=== PATIENT | male | born 1970 | race Caucasian/White ===

== ENCOUNTER 2016-07-17 15:00 | Inpatient (IN) | payer OTHER ==
--- NOTE | ~2016-07-17 | HP ---
Unit #: [id number] #: [id number] Patient: HARISH WHITLEY [id number] [place] [address] [id number] MR#: [id number] NAME: HARISH WHITLEY ROOM: P203 Age: 46 Sex: M Admission Date: 07/17/2016 : 1970 Attending Physician: Austin Garcia M.D. Admitting Physician: Austin Garcia M.D. Primary Care Physician: Primary Care Physician No HISTORY AND PHYSICAL HISTORY OF PRESENT ILLNESS The patient is a 46-year-old male admitted to [address] [place] [address] on 07/17/2016 to detox from alcohol. PAST MEDICAL HISTORY 1. Alcohol abuse 2. Withdrawal seizures 3. COPD 4. Nicotine dependence PAST SURGICAL HISTORY The patient denies. SOCIAL HISTORY The patient lives alone. He is unemployed. He smokes a half of pack of cigarettes daily and drinks a half of gallon of vodka per day. FAMILY MEDICAL HISTORY Noncontributory. ALLERGIES No known drug allergies. CURRENT MEDICATIONS The patient is not on any home medications. REVIEW OF SYSTEMS CONSTITUTIONAL: No fever or chills. HEENT: Denies any sore throat, ear pain or runny nose. CARDIOVASCULAR: Denies chest pain, irregular heart rhythm or palpitations. CHEST: Denies shortness of breath or cough. No hemoptysis. GASTROINTESTINAL: Denies nausea, vomiting, diarrhea or chronic constipation. ENDOCRINE: Denies history of increased thirst or urination. No recent significant weight loss or gain. GENITOURINARY: Denies dysuria, frequency, or hematuria. SKIN: Denies any rashes. HEMATOLOGIC: Denies history of increased bleeding or bruising. MUSCULOSKELETAL: Denies any hot, swollen joints. No generalized muscle pain. NEUROLOGIC: Denies problems with vision or speech. No frequent, severe headaches. No numbness, tingling or weakness in any extremities. Denies loss of bladder or bowel control. Unit #: [id number] #: [id number] Patient: HARISH WHITLEY PHYSICAL EXAM GENERAL: She is awake, alert and oriented in no acute distress. VITAL SIGNS: Temperature 98.1, heart rate 105, respiration 18, blood pressure 162/92. HEIGHT: 5'10". WEIGHT: 160 pounds. SKIN: Warm and dry without rash or lesion. HEENT: Normocephalic. TMs not viewed. Oral and nasal passages clear. Conjunctivae clear. PERRLA. EOMs intact. NECK: Supple without lymphadenopathy or thyromegaly. HEART: Regular rate and rhythm without murmur. LUNGS: Clear. ABDOMEN: Soft, nontender. : Not done. EXTREMITIES: No evidence of cyanosis, clubbing or edema. Moves all without focal deficit. NEUROLOGICAL: Grossly within normal limits. Cranial Nerves: II: Visual roman are intact. III, IV AND : Extraocular movements are intact. Pupils are equal, round and reactive to light. V: Facial sensation is grossly normal. VII: Facial movements and expression are normal. VIII: Auditory acuity grossly intact. IX, X: Uvula is midline. Phonation is normal. XI: Patient shrugs shoulders and turns head normally. XII: Tongue protrudes in the midline. Sensory and Motor Function: Sensory and motor sensation is grossly normal. Motor: moves all extremities well. IMPRESSION 1. Psychiatric admission. 2. Alcohol dependence. 3. Withdrawal seizures. 4. COPD. 5. Nicotine dependence. RECOMMENDATIONS Psychiatric per psychiatrist. MEDICAL: No contraindication to participate in facility activities. MEDICAL PROGNOSIS Good. MEDICAL CONDITION Stable. Dictated by... Matt Godinez/tonya TD: 07/19/2016 00:22 JOB #: [id number] Unit #: [id number] #: [id number] Patient: HARISH WHITLEY HISTORY AND PHYSICAL Page 1 of 1 X LOVE NARVAEZ APRN HISTORY AND PHYSICAL
--- NOTE | ~2016-07-17 | PN ---
Unit #: [id number] #: [id number] Patient: HARISH ARIAS [id number] [facility] [address] [place] [address] [id number] MR#: [id number] NAME: HARISH ARIAS ROOM: P203 Age: 46 Sex: M Admission Date: 07/17/2016 : 1970 Attending Physician: Austin Garcia M.D. Admitting Physician: Austin Garcia M.D. Primary Care Physician: Primary Care Physician Ofelia CONTRERAS NOTES DATE OF SERVICE 07/19/2016 DISCUSSION Mr. Arias is a 46-year-old white male who was seen today. Chart was reviewed and case was discussed with the staff. He has been anxious, withdrawn, and seclusive to himself and remains in distress and discomfort. Meanwhile, he has been taking the medications and tolerating them fairly well with no reported side effects. MENTAL STATUS EXAMINATION Middle-aged white male who is casually dressed with marginal personal hygiene, appears to be in no acute distress or discomfort. The patient was awake and alert on interaction with intact orientation. His mood is anxious with congruent affect. He denies any suicidal or homicidal ideations and also denies any auditory or visual hallucinations. His insight and judgment remain slightly impaired. TREATMENT PLAN 1. We will continue him on his current medications and treatment protocol. We will monitor his response to the medications and make further adjustments as needed. 2. We will continue to follow up. Dictated by... Austin Garcia M.D. IAA/bzg TD: 07/20/2016 09:07 JOB #: [id number] Unit #: [id number] #: [id number] Patient: HARISH ARIAS PROGRESS NOTES Page 1 of 1 X Austin Garcia MD PROGRESS NOTE
--- NOTE | ~2016-07-17 | PA ---
Unit #: [id number] #: [id number] Patient: HARISH ARIAS [id number] [facility] [place] [address] [id number] MR#: [id number] NAME: HARISH ARIAS ROOM: P203 Age: 46 Sex: M Admission Date: 07/17/2016 : 1970 Date of Assessment: 07/18/2016 Attending Physician: Austin Garcia M.D. Admitting Physician: Austin Garcia M.D. Primary Care Physician: Primary Care Physician No PSYCHIATRIC ASSESSMENT DATE OF SERVICE 07/17/2016. IDENTIFYING DATA Mr. Arias is a 46-year-old, , white male, who is a resident of [place], [place] and was self-referred to the hospital on a voluntary basis. CHIEF COMPLAINT "I'm very sick. I could not move this morning." HISTORY OF PRESENT ILLNESS Mr. Arias is a 46-year-old white male with long history of alcohol dependence, who is known to me from previous encounter, was self-referred to the hospital with blood alcohol level of 0.036 and he stated that he is very sick and he cannot move this morning as "I think I'm dehydrated, right before I left I got sick and puked up a lung. My girlfriend, family, everybody states I have to stop." The patient stated that he was sober for 6 months and that he has been drinking 12 beers daily for the last 6 months. He then got agitated and aggressive and hostile on admissions and he was taken to the unit, where once again he was seen to be hostile and belligerent and p.r.n. medications were given to keep him calm and was seen to be significant danger to others and himself and as such, recommendation for inpatient level of care was recommended. SUBSTANCE ABUSE HISTORY The patient reports history of experimentation with cannabis, but alcohol has been his drug of choice and reports that he has been drinking for the last 15 years and currently has been drinking 12 beers or more on daily basis. He denies any other drug abuse. PAST PSYCHIATRIC HISTORY The patient has had history of multiple inpatient chemical dependency psychiatric treatment at [facility] [place] and review of the medical records indicate that currently he is not active in any treatment program, is not seeing a psychiatrist, and not taking any psychotropic medications. PAST MEDICAL HISTORY Gastroesophageal reflux disease. ALLERGIES No known medication allergies. Unit #: [id number] #: [id number] Patient: HARISH ARIAS PERSONAL AND SOCIAL HISTORY The patient is a 46-year-old, , white male who reports that he lives at home with his mother and his girlfriend, and has fairly decent social support system. MENTAL STATUS EXAMINATION Middle-aged white male who was casually dressed with fair personal hygiene, appears to be in no acute distress or discomfort. He was awake and alert on interaction with intact orientation to time, place, and person. His mood was anxious with a congruent affect. His speech was slow and goal directed. He reports having suicidal ideation, but denies any homicidal ideations, and also denies any auditory or visual hallucinations. His insight and judgment remain significantly impaired. DIAGNOSTIC IMPRESSION Psychiatric: Major depressive disorder, recurrent, moderate, without psychotic features; alcohol dependence, moderate and acute withdrawals. Medical: None. Stressors: Moderate psychosocial stressors. TREATMENT PLAN 1. The patient has presented with history of mood disorder and has been decompensating, and will need inpatient hospitalization for safety and stabilization. We will start him back on his home medications. We will adjust medications and monitor response. 2. Supportive therapy was provided to the patient. ESTIMATED LENGTH OF STAY 5 to 7 days. ABILITY TO HELP SELF Limited. WILLINGNESS TO HELP SELF The patient appears to be willing to help self. STRENGTHS 1. Communicative. 2. Cooperative. PROBLEMS 1. Chronic dysphoric symptoms. 2. Chronic chemical dependency. 3. Poor social support system. DISCHARGE CRITERIA This will be contingent upon the patient's ability to go through detox without having any significant withdrawal symptoms as well as his ability to stay safe to himself, particularly after discharge from the hospital. Dictated by... Marlen Zimmerman/iftikhar TD: 07/18/2016 10:53 JOB #: [id number] Unit #: [id number] #: [id number] Patient: HARISH ARIAS PSYCHIATRIC ASSESSMENT Page 1 of 1 X Austin Garcia MD X PSYCHIATRIC ASSESSMENT
--- NOTE | ~2016-07-17 | PN ---
Unit #: [id number] #: [id number] Patient: HARISH ARIAS [id number] [facility] [address] [place] [address] [id number] MR#: [id number] NAME: HARISH ARIAS ROOM: P203 Age: 46 Sex: M Admission Date: 07/17/2016 : 1970 Attending Physician: Austin Garcia M.D. Admitting Physician: Austin Garcia M.D. Primary Care Physician: Primary Care Physician Ofelia CONTRERAS NOTES DATE OF SERVICE 07/21/2016 DISCUSSION Mr. Arias is a 46-year-old white male who was seen today. Chart was reviewed and case was discussed with staff. He has been anxious and withdrawn though has not shown any agitation or irritability and has been cooperative with the treatment recommendations and has been taking the medications and tolerating them fairly well with no reported side effects. MENTAL STATUS EXAMINATION Middle-aged white male who is casually dressed with fair personal hygiene, appears to be in no acute distress or discomfort. The patient was awake and alert on interaction with intact orientation. His mood is anxious with congruent affect. He denies any suicidal or homicidal ideations and also denies any auditory or visual hallucinations. His insight and judgment remain slightly impaired. TREATMENT PLAN 1. We will continue him on his current medications and treatment protocol. We will monitor his response to the medications and make further adjustments as needed. 2. We will continue to follow up. Dictated by... Austin Garcia M.D. IAA/bzg TD: 07/21/2016 14:54 JOB #: [id number] Unit #: [id number] #: [id number] Patient: HARISH ARIAS PROGRESS NOTES Page 1 of 1 X Austin Garcia MD X PROGRESS NOTE
--- NOTE | ~2016-07-17 | PN ---
Unit #: [id number] #: [id number] Patient: HARISH ARIAS [id number] [facility] [address] [place] [address] [id number] I MR#: [id number] NAME: HARISH ARIAS ROOM: P203 Age: 46 Sex: M Admission Date: 07/17/2016 : 1970 Attending Physician: Austin Garcia M.D. Admitting Physician: Austin Garcia M.D. Primary Care Physician: Primary Care Physician Ofelia CONTRERAS NOTES DATE 07/20/2016 DISCUSSION Mr. Arias is a 46-year-old, white male who was seen today and chart was reviewed and case was discussed with the staff. He has been anxious, withdrawn and rather seclusive to himself. Meanwhile, he has been cooperative with treatment recommendations. He has been taking medications and tolerating them fairly well with no reported side effects. MENTAL STATUS EXAM Middle-aged white male who was casually dressed with fair personal hygiene, appears to be in no acute distress or discomfort. He was awake and alert on interaction with intact orientation. His mood was anxious with congruent affect. He denies any suicidal or homicidal ideation. His insight and judgement remains slightly impaired. TREATMENT PLAN 1. We will continue him on his current medications and treatment protocol. We will monitor his response to the medication and make further adjustments as needed. 2. We will continue to follow up. Dictated by... Marlen Zimmerman/tonya TD: 07/21/2016 03:03 JOB #: [id number] Unit #: [id number] #: [id number] Patient: HARISH ARIAS PROGRESS NOTES Page 1 of 1 X Austin Garcia MD PROGRESS NOTE
--- NOTE | ~2016-07-17 | DS ---
Unit #: [id number] #: [id number] Patient: [facility] [id number] [facility] [address] [place] [address] [id number] MR#: [id number] NAME: HARISH ARIAS ROOM: [facility] Age: 46 Sex: M Admission Date: 07/17/2016 : 1970 Discharge Date: 07/22/2016 Attending Physician: Austin Garcia M.D. Primary Care Physician: Primary Care Physician No DISCHARGE SUMMARY IDENTIFYING DATA Mr. Arias is a 46-year-old white male, who is a resident of [place], [place], and was self-referred to the hospital on a voluntary basis. DISCHARGE DIAGNOSES Psychiatric: Major depressive disorder, recurrent, moderate, without psychotic features; alcohol dependence, moderate and acute withdrawals. Medical: None. Stressors: Moderate psychosocial stressors. HISTORY OF PRESENT ILLNESS Please see initial psychiatric evaluation for details. PAST PSYCHIATRIC HISTORY Please see initial psychiatric evaluation for details. PAST MEDICAL HISTORY Please see initial psychiatric evaluation for details. HOSPITAL COURSE The patient was [facility] and was oriented to the hospital environment. Routine p.r.n. medications were initiated, and he was started back on his home medications and detox protocol was initiated. The patient was actively detoxing, however, he was able to come out of the detox without any complications and was willing to continue treatment on an outpatient basis and as such, it was decided that he will be discharged home and will continue treatment on an outpatient basis. DISCHARGE MEDICATIONS None. DISCHARGE CONDITION Stable. PROGNOSIS Fair. Dictated by... Austin Garcia M.D. IAA/modl Unit #: [id number] #: [id number] Patient: HARISH ARIAS TD: 07/22/2016 23:22 JOB #: [id number] DISCHARGE SUMMARY Page 1 of 1 X Austin Garcia MD X DISCHARGE SUMMARY
--- NOTE | ~2016-07-17 | PN ---
Unit #: [id number] #: [id number] Patient: HARISH ARIAS [id number] [facility] [address] [place] [address] [id number] I MR#: [id number] NAME: HARISH ARIAS ROOM: P203 Age: 46 Sex: M Admission Date: 07/17/2016 : 1970 Attending Physician: Austin Garcia M.D. Admitting Physician: Austin Garcia M.D. Primary Care Physician: Primary Care Physician Ofelia CONTRERAS NOTES DATE 07/18/2016 DISCUSSION Mr. Arias is a 46-year-old, white male who was seen today and chart was reviewed and case was discussed with the staff. He remains anxious, withdrawn, unkempt, disheveled and rather seclusive to himself appears to be in some distress or discomfort after had a rough night last night. Meanwhile, he has been taking medications and tolerating them fairly well with no reported side effects. MENTAL STATUS EXAM Middle-aged white male who was casually dressed with fair personal hygiene, appears to be in no acute distress or discomfort. He was awake and alert with impaired attention and concentration. His mood was anxious with congruent affect. His speech was slow and tangential. His insight and judgement remains significantly impaired. TREATMENT PLAN 1. We will continue him on his current medications and treatment protocol. We will monitor his response to the medication and make further adjustments as needed. 2. We will continue to follow up. Dictated by... Marlen Zimmerman/tonya TD: 07/20/2016 02:51 JOB #: [id number] Unit #: [id number] #: [id number] Patient: HARISH ARIAS PROGRESS NOTES Page 1 of 1 X Austin Garcia MD PROGRESS NOTE
[~2016-07-17 15:00] MED LIST: FOLIC ACID1 MG PO; LIBRIUM25 MG PO; MOTRIN IB200 M1; MULTI-VITAMIN1 TAB PO; NICOTINE TRANSD21 MG EXT; VITAMIN B-1100 M1 PO
[2016-07-19 09:43] LABS: BASOPHIL% 0.3 % (0-2.5); EOSINOPHIL# 0.1 X10e3 (0-0.7); EOSINOPHIL% 2.1 % (0.0-7.0); HEMOGLOBIN 14.7 gm/dL (13.0-16.0); LYMPHOCYTE# 2.1 X10e3 (1.0-3.5); LYMPHOCYTE% 30.6 % (17.0-45.0); MEAN CELL VOLUME 88.9 FL (83-96); MEAN CORPUSCULAR HEMOGLOBIN 29.7 PG (28-34); MEAN CORPUSCULAR HGB CONC 33.4 g/dL (30-36); MEAN PLATELET VOLUME 6.6 FL (6.5-11.5); MONOCYTE# 0.5 X10e3 (0-1.0); MONOCYTE% 7.1 % (3.0-12.0); NEUTROPHIL# 4.2 X10e3 (1.5-7.1); NEUTROPHIL% 59.9 % (40-75); PLATELET COUNT 290 X10e3 (140-420); RED BLOOD COUNT 4.94 X10e (3.90-5.60); RED CELL DISTRIBUTION WIDTH 14.3 % (11.0-15.5)
[2016-07-19 09:51] LABS: DIFF IND NO
[2016-07-19 10:00] LABS: URINE APPEARANCE CLEAR; URINE BLOOD NEG (NEG); URINE COLOR DK YELLOW; URINE GLUCOSE NEG (NEG); URINE KETONE 2+ (NEG); URINE LEUKOCYTE ESTERASE NEG (NEG); URINE NITRATE NEG (NEG); URINE PROTEIN TRACE (NEG); URINE SPECIFIC GRAVITY 1.029 (1.003-1.035)
[2016-07-19 10:15] LABS: BILIRUBIN,TOTAL 2.4 mg/dL (0.2-2.0); BUN/CREATININE RATIO 23.33; CALCIUM SERUM 9.1 mg/dL (8.4-10.2); CREATININE SERUM 0.6 mg/dL (0.6-1.4); GLOM FILT RATE Estimated 122.3 mL/min (>60); PROTEIN TOTAL SERUM 6.2 g/dL (6.0-8.3)
[2016-07-19 10:20] LABS: URINE BILIRUBIN NEG (NEG)
[2016-07-19 10:21] LABS: AMPHETAMINE NEG (NEG); BARBITURATES NEG (NEG); BENZODIAZEPINES POS (NEG); COCAINE NEG (NEG); MARIJUANA NEG (NEG); OPIATES NEG (NEG); TRICYCLIC ANTIDEPRESSANTS NEG (NEG); U METHADONE NEG (NEG)
== END 2016-07-22 09:21 | disposition home or self-care (01) | DRG 885 ==
LOC: P2S 16:59
PROVIDERS: Psychiatry & Neurology Psychiatry
PROC: HZ2ZZZZ Detoxification Services for Substance Abuse Treatment (ICD-10-PCS; principal; 2016-07-17)
DX: F33.1 Major depressive disorder, recurrent, moderate (principal); F10.239 Alcohol dependence with withdrawal, unspecified; F17.210 Nicotine dependence, cigarettes, uncomplicated; J44.9 Chronic obstructive pulmonary disease, unspecified; K21.9 Gastro-esophageal reflux disease without esophagitis
CPT/HCPCS: 80053; 80307; 81003; 85025; 86592

== ENCOUNTER 2016-09-13 13:27 | Inpatient (IN) | payer OTHER ==
--- NOTE | ~2016-09-13 | PN ---
Unit #: [id number] #: [id number] Patient: HARISH ARIAS [id number] [facility] [address] [place] [address] [id number] I MR#: [id number] NAME: HARISH ARIAS ROOM: [facility] Age: 46 Sex: M Admission Date: 09/13/2016 : 1970 Attending Physician: Austin Garcia M.D. Admitting Physician: Austin Garcia M.D. Primary Care Physician: Primary Care Physician Ofelia CARRIZALES PROGRESS NOTES DATE September 19, 2016 DISCUSSION Mr. Arias is a 46-year-old white male, who was seen today and chart was reviewed and the case was discussed with the staff. He has been anxious, withdrawn, and rather seclusive to himself. Meanwhile, he has been cooperative with the treatment recommendations and he has been taking the medications and tolerating them fairly well with no reported side effects. MENTAL STATUS EXAMINATION Middle-aged white male, who was casually dressed with fair personal hygiene and appears to be in no acute distress or discomfort. He was awake and alert on interaction with intact orientation. His mood is anxious with a congruent affect. He denies any suicidal or homicidal ideations. His insight and judgment remain slightly impaired. TREATMENT PLAN We will continue him on his current treatment protocol, and will monitor his response to the medications. Dictated by... Marlen Zimmerman/vinicius TD: 09/20/2016 09:28 JOB #: [id number] [facility] PROGRESS NOTES Page 1 of 1 X Austin Garcia MD PROGRESS NOTE
--- NOTE | ~2016-09-13 | PA ---
Unit #: [id number] #: [id number] Patient: HARISH ARIAS [id number] [facility] [address] [place] [address] [id number] MR#: [id number] NAME: HARISH ARIAS ROOM: P201 Age: 46 Sex: M Admission Date: 09/13/2016 : 1970 Date of Assessment: 09/13/2016 Attending Physician: Austin Garcia M.D. Admitting Physician: Austin Garcia M.D. Primary Care Physician: Primary Care Physician No PSYCHIATRIC ASSESSMENT DATE OF SERVICE 09/13/2016. IDENTIFYING DATA Mr. Arias is a 46-year-old white male, who is a resident of [place], [place] with long history of alcohol dependence, who is very well known to us from previous multiple encounters and was once again self-referred to the hospital. CHIEF COMPLAINT "I've been drinking at least a fifth of vodka daily." HISTORY OF PRESENT ILLNESS Mr. Arias is a 46-year-old white male, who brought himself to the hospital, stating that he relapsed about a month ago and since then, he has been drinking at least a fifth of vodka on daily basis and was seen to be anxious, withdrawn, unkempt, disheveled, tremulous, and had slurred speech and appears to be in acute distress and discomfort and reports that sometime he has been drinking more and his last drink was last night around 9:00 p.m. and that he has history of withdrawal seizures as well as history of delirium tremens and is known to us from having complicated detox in the past. He reports that he has been unemployed for 3 weeks and lost his job 3 weeks ago after he relapsed on alcohol and that he has been homeless for the past 3 weeks and has no source of income and has a history of withdrawal seizures and has been drinking on the street, and does report increasing depression, anxiety, feelings of hopelessness and helplessness, and has history of suicidal ideation, has attempted suicide by overdosing a few years ago. He denies any current suicide intent or plan. SUBSTANCE ABUSE HISTORY The patient reports history of alcohol dependence. Reports that he has been drinking since he was 7 years old and currently reports drinking a fifth of vodka on daily basis and sometimes drinks more. He denies any other substance abuse issues. PAST PSYCHIATRIC HISTORY The patient has a history of multiple inpatient psychiatric hospitalizations at [facility] and other facilities and currently is not active in treatment program, is not seeing a psychiatrist, and is not taking any psychotropic medications. PAST MEDICAL HISTORY Unit #: [id number] #: [id number] Patient: HARISH ARIAS Significant for history of withdrawal seizures. ALLERGIES No known medication allergies. CURRENT MEDICATIONS None. PERSONAL AND SOCIAL HISTORY A 46-year-old white male, who reports that he is single, unemployed, and essentially homeless and has poor social support system. MENTAL STATUS EXAMINATION Middle-aged white male, who was casually dressed with fair personal hygiene, appears to be in no acute distress or discomfort. He was awake and alert on interaction with intact orientation. His mood was anxious and depressed with a congruent affect. His speech was slow and restricted in content. His thought processes were disorganized with some looseness of associations. He denies any suicidal or homicidal ideations and also denies any auditory or visual hallucinations. His insight and judgment remain significantly impaired. DIAGNOSTIC IMPRESSION Psychiatric: Alcohol dependence, moderate; alcohol-induced mood disorder. Medical: None. Stressors: Moderate psychosocial stressors. TREATMENT PLAN 1. The patient has presented with a history of mood disorder and substance abuse and has been decompensating and will need inpatient hospitalization for detoxification, safety, and stabilization. We will start him on detox protocol. We will closely monitor for any worsening withdrawal symptoms. 2. Supportive therapy was provided to the patient. 3. Safe, structured, and nourishing environment will be provided. ESTIMATED LENGTH OF STAY 5 to 7 days. ABILITY TO HELP SELF Limited. WILLINGNESS TO HELP SELF The patient appears to be willing to help self. STRENGTHS 1. Communicative. 2. Cooperative. PROBLEMS 1. Chronic dysphoric symptoms. 2. Chronic chemical dependency. 3. Poor social support system. DISCHARGE CRITERIA This will be contingent upon the patient's ability to go through detox without having any significant withdrawal symptoms as well as his ability to stay safe to himself, particularly after discharge from the hospital. Unit #: [id number] #: [id number] Patient: HARISH ARIAS Dictated by... Marlen Zimmerman/iftikhar TD: 09/14/2016 20:21 JOB #: [id number] PSYCHIATRIC ASSESSMENT Page 1 of 1 X Austin Garcia MD PSYCHIATRIC ASSESSMENT
--- NOTE | ~2016-09-13 | PN ---
Unit #: [id number] #: [id number] Patient: HARISH ARIAS [id number] [facility] [address] [place] [address] [id number] I MR#: [id number] NAME: HARISH ARIAS ROOM: P201 Age: 46 Sex: M Admission Date: 09/13/2016 : 1970 Attending Physician: Austin Garcia M.D. Admitting Physician: Austin Garcia M.D. Primary Care Physician: Primary Care Physician Ofelia CARRIZALES PROGRESS NOTES DATE 09/16/2016 DISCUSSION Mr. Arias is a 46-year-old white male who was seen today and chart was reviewed and case was discussed with the staff. He has been anxious, withdrawn and seclusive to himself. Meanwhile, he has been cooperative with treatment recommendations and has been taking medications and tolerating them fairly well with no reported side effects. MENTAL STATUS EXAMINATION Middle-aged white male who was casually dressed with fair personal hygiene and appears to be in no acute distress or discomfort. He was awake and alert on interaction with intact orientation. His mood was anxious with congruent affect. He denies any suicidal or homicidal ideation. His insight and judgement remains slightly impaired. TREATMENT PLAN Will continue on his current treatment protocol. Will monitor response and make further adjustments as needed. Dictated by... Marlen Zimmerman/luann TD: 09/16/2016 17:21 JOB #: [id number] [facility] PROGRESS NOTES Page 1 of 1 X Austin Garcia MD X PROGRESS NOTE
--- NOTE | ~2016-09-13 | PN ---
Unit #: [id number] #: [id number] Patient: HARISH ARIAS [id number] [facility] [address] [place] [address] [id number] I MR#: [id number] NAME: HARISH ARIAS ROOM: P201 Age: 46 Sex: M Admission Date: 09/13/2016 : 1970 Attending Physician: Austin Garcia M.D. Admitting Physician: Austin Garcia M.D. Primary Care Physician: Primary Care Physician Ofelia CARRIZALES PROGRESS NOTES DATE OF SERVICE: 09/14/2016 SUBJECTIVE Mr. Arias is a 46-year-old white male, who was seen today and chart was reviewed, and case was discussed with the staff. He has been anxious, withdrawn, in no acute distress or discomfort. Meanwhile, he has been taking medications and tolerating them fairly well with no reported side effects. MENTAL STATUS EXAMINATION Middle-aged white male who was causally dressed with marginal personal hygiene, appears to be in no acute distress or discomfort. He was awake and alert with impaired attention and concentration. His mood was anxious with a congruent affect. His speech was slow and restricted in content. His thought processes were disorganized with some looseness of association. His insight and judgement remain significantly impaired. TREATMENT PLAN 1. We will continue him on his current medications and treatment protocol. We will monitor his response to the medications and make further adjustments as needed. 2. We will continue to follow up. Dictated by... Marlen Zimmerman/juancarlosl TD: 09/15/2016 01:07 JOB #: [id number] [facility] PROGRESS NOTES Page 1 of 1 X Austin Garcia MD PROGRESS NOTE
--- NOTE | ~2016-09-13 | PN ---
Unit #: [id number] #: [id number] Patient: HARISH ARIAS [id number] [facility] [address] [place] [address] [id number] I MR#: [id number] NAME: HARISH ARIAS ROOM: P201 Age: 46 Sex: M Admission Date: 09/13/2016 : 1970 Attending Physician: Austin Garcia M.D. Admitting Physician: Austin Garcia M.D. Primary Care Physician: Primary Care Physician Ofelia CARRIZALES PROGRESS NOTES DATE 09/15/2016 DISCUSSION Mr. Arias is a 46-year-old white male who was seen today and chart was reviewed and case was discussed with the staff. He has been anxious, withdrawn and rather seclusive to himself. Meanwhile, he has been cooperative with treatment recommendations and has been taking medications and tolerating them fairly well with no reported side effects. MENTAL STATUS EXAMINATION Middle-aged white male who was casually dressed with fair personal hygiene and appears to be in no acute distress or discomfort. He was awake and alert with impaired attention and concentration. His mood was anxious with congruent affect. He denies any suicidal or homicidal ideation. His insight and judgement remains slightly impaired. TREATMENT PLAN 1. Will continue on his current medications and treatment protocol. Will monitor his response to the medications and make further adjustments as needed. 2. Will continue to follow up. Dictated by... Austin Garcia M.D. IAA/luann TD: 09/15/2016 21:23 JOB #: [id number] Unit #: [id number] #: [id number] Patient: HARISH ARIAS PROGRESS NOTES Page 1 of 1 X Austin Garcia MD PROGRESS NOTE
--- NOTE | ~2016-09-13 | PN ---
Unit #: [id number] #: [id number] Patient: HARISH ARIAS [id number] [facility] [address] [place] [address] [id number] I MR#: [id number] NAME: HARISH ARIAS ROOM: P1 Age: 46 Sex: M Admission Date: 09/13/2016 : 1970 Attending Physician: Austin Garcia M.D. Admitting Physician: Austin Garcia M.D. Primary Care Physician: Primary Care Physician Ofelia CARRIZALES PROGRESS NOTES DATE 09/20/2016 DISCUSSION Mr. Arias is a 46-year-old, white male who was seen today and chart was reviewed and case was discussed with the staff. He has been anxious, withdrawn and rather seclusive to himself. Meanwhile, he has been cooperative with the treatment recommendations. He has been taking the medication and tolerating them fairly well with no reported side effects. MENTAL STATUS EXAM Middle-aged white male who was casually dressed with fair personal hygiene, appears to be in no acute distress or discomfort. He was awake and alert on interaction with intact orientation. His mood was anxious with congruent affect. He denies any suicidal or homicidal ideation. His insight and judgement remains slightly impaired. TREATMENT PLAN 1. We will continue him on his current treatment protocol. We will monitor his response and make further adjustments as needed. 2. We will continue to follow up. Dictated by... Marlen Zimmerman/tonya TD: 09/21/2016 04:05 JOB #: [id number] Unit #: [id number] #: [id number] Patient: HARISH ARIAS PROGRESS NOTES Page 1 of 1 X Austin Garcia MD PROGRESS NOTE
--- NOTE | ~2016-09-13 | DS ---
Unit #: [id number] #: [id number] [facility] [id number] [facility] [address] [place] [address] [id number] I MR#: [id number] NAME: HARISH ARIAS ROOM: P1 Age: 46 Sex: M Admission Date: 09/13/2016 : 1970 Discharge Date: 09/21/2016 Attending Physician: Austin Garcia M.D. Primary Care Physician: Primary Care Physician No DISCHARGE SUMMARY IDENTIFYING DATA Mr. Arias is a 46-year-old white male who is a resident of [place], [place] and is very well known to us from previous multiple encounters and was self-referred to the hospital. DISCHARGE DIAGNOSES Psychiatric: Alcohol dependence, moderate and acute withdrawals, alcohol-induced mood disorder. Medical: None. Stressors: Moderate psychosocial stressors. HISTORY OF PRESENT ILLNESS Please see initial psychiatric evaluation for details. PAST PSYCHIATRIC HISTORY Please see initial psychiatric evaluation for details. PAST MEDICAL HISTORY Please see initial psychiatric evaluation for details. HOSPITAL COURSE The patient was admitted to the adult chemical dependency unit at [facility] and was oriented to the hospital environment. Routine p.r.n. medications were initiated, and he was started back on his home medications and detox protocol was initiated and he was closely monitored. He was once again seen to be having complicated withdrawals and was unkempt, disheveled, seclusive to himself with significant anxiety and tremors and initially was not even able to function or come out of his room, however, he slowly started showing therapeutic response with improvement in his detox symptoms and was able to come out and was expressing the desire to be able to go to a long-term rehab level of care and community mental health social worker were asked to make referral and once treatment was completed, it was decided that he will be discharged home and will continue treatment on an outpatient basis. DISCHARGE MEDICATIONS Seroquel 200 mg at bedtime for mood disorder and Minipress 1 mg at bedtime for PTSD. DISCHARGE CONDITION Stable. PROGNOSIS [place]. Unit #: [id number] #: [id number] Patient: HARISH ARIAS Dictated by... Marlen Zimmerman/juancarlosl TD: 09/21/2016 07:10 JOB #: [id number] DISCHARGE SUMMARY Page 1 of 1 X Austin Garcia MD DISCHARGE SUMMARY
--- NOTE | ~2016-09-13 | PN ---
Unit #: [id number] #: [id number] Patient: HARISH ARIAS [id number] [facility] [address] [place] [address] [id number] I MR#: [id number] NAME: HARISH ARIAS ROOM: P201 Age: 46 Sex: M Admission Date: 09/13/2016 : 1970 Attending Physician: Austin Garcia M.D. Admitting Physician: Austin Garcia M.D. Primary Care Physician: Primary Care Physician Ofelia CARRIZALES PROGRESS NOTES DATE 09/17/2016 DISCUSSION Mr. Arias is a 46-year-old white male who was seen and chart was reviewed and case was discussed with the staff. He has been anxious, withdrawn though has not shown any agitation, irritability or behavioral problems and has been cooperative with treatment recommendations and has been taking medications and tolerating them fairly well with no reported side effects. MENTAL STATUS EXAMINATION Middle-aged white male who was casually dressed with fair personal hygiene and appears to be in no acute distress or discomfort. He was awake and alert on interaction with intact orientation. His mood was anxious with congruent affect. He denies any suicidal or homicidal ideation. His insight and judgement remains slightly impaired. TREATMENT PLAN 1. Will continue on his current medications and treatment protocol. Will monitor response to medications and make further adjustments as needed. 2. Will continue to follow up. Dictated by... Marlen Zimmerman/luann TD: 09/17/2016 17:31 JOB #: [id number] Unit #: [id number] #: [id number] Patient: HARISH ARIAS PROGRESS NOTES Page 1 of 1 X Austin Garcia MD PROGRESS NOTE
--- NOTE | ~2016-09-13 | HP ---
Unit #: [id number] #: [id number] Patient: HARISH WHITLEY [id number] [place] [address] [id number] I MR#: [id number] NAME: HARISH WHITLEY ROOM: P201 Age: 46 Sex: M Admission Date: 09/13/2016 : 1970 Attending Physician: Austin Garcia M.D. Admitting Physician: Austni Garcia M.D. Primary Care Physician: Primary Care Physician No HISTORY AND PHYSICAL HISTORY OF PRESENT ILLNESS Harish is a 46 year old, admitted to [address] [place] [address] because of his continued abuse of alcohol. PAST MEDICAL HISTORY 1. Long history of alcohol abuse. 2. History of withdrawal seizures. 3. Chronic obstructive pulmonary disease. PAST SURGICAL HISTORY Nothing reported. ALLERGIES No known drug allergies. SOCIAL HISTORY He smokes one half packs per day, drinks a fifth of liquor on a daily basis, and denies illicit drug use. FAMILY HISTORY Medically noncontributory. REVIEW OF SYSTEMS CONSTITUTIONAL: No fever or chills. HEENT: Denies any sore throat, ear pain or runny nose. CARDIOVASCULAR: Denies chest pain, irregular heart rhythm or palpitations. CHEST: Denies shortness of breath or cough. No hemoptysis. GASTROINTESTINAL: Denies nausea, vomiting, diarrhea or chronic constipation. ENDOCRINE: Denies history of increased thirst or urination. No recent significant weight loss or gain. GENITOURINARY: Denies dysuria, frequency, or hematuria. SKIN: Denies any rashes. HEMATOLOGIC: Denies history of increased bleeding or bruising. MUSCULOSKELETAL: Denies any hot, swollen joints. No generalized muscle pain. NEUROLOGIC: Denies problems with vision or speech. No frequent, severe headaches. No numbness, tingling or weakness in any extremities. Denies loss of bladder or bowel control. CURRENT MEDICATIONS Detox protocol. PHYSICAL EXAMINATION Unit #: [id number] #: [id number] Patient: HARISH WHITLEY GENERAL: Alert, well-nourished, no apparent distress. VITAL SIGNS: Blood pressure 128/80, heart rate 80, respirations 16, and temperature 98.6. WEIGHT: 157 pounds. HEIGHT: 5 feet 10 inches. SKIN: Warm and dry without rash or lesion. HEENT: Normocephalic. TMs not viewed. Oral and nasal passages clear. Conjunctivae clear. PERRLA. EOMs intact. NECK: Supple without lymphadenopathy or thyromegaly. HEART: Regular rate and rhythm without murmur. LUNGS: Clear. ABDOMEN: Soft, nontender. : Not done. EXTREMITIES: No evidence of cyanosis, clubbing or edema. Moves all without focal deficit. NEUROLOGICAL: Grossly within normal limits. Cranial Nerves: II: Visual roman are intact. III, IV AND : Extraocular movements are intact. Pupils are equal, round and reactive to light. V: Facial sensation is grossly normal. VII: Facial movements and expression are normal. VIII: Auditory acuity grossly intact. IX, X: Uvula is midline. Phonation is normal. XI: Patient shrugs shoulders and turns head normally. XII: Tongue protrudes in the midline. Sensory and Motor Function: Sensory and motor sensation is grossly normal. Motor: moves all extremities well. Coordination: Gait is normal. Deep Tendon Reflexes: Intact. IMPRESSION Psychiatric admission. RECOMMENDATIONS Psychiatric, per psychiatrist. MEDICAL I see no contraindications to participating in facility's activities. MEDICAL PROGNOSIS Good. MEDICAL CONDITION Stable. Dictated by... Leatha Smith P.A.-C. for Marlen Ziegler/vinicius TD: 09/14/2016 13:57 JOB #: [id number] Unit #: [id number] #: [id number] Patient: HARISH WHITLEY HISTORY AND PHYSICAL Page 1 of 1 X Leatha Smith HISTORY AND PHYSICAL
--- NOTE | ~2016-09-13 | PN ---
Unit #: [id number] #: [id number] Patient: HARISH ARIAS [id number] [facility] [address] [place] [address] [id number] I MR#: [id number] NAME: HARISH ARIAS ROOM: [facility] Age: 46 Sex: M Admission Date: 09/13/2016 : 1970 Attending Physician: Austin Garcia M.D. Admitting Physician: Austin Garcia M.D. Primary Care Physician: Primary Care Physician Ofelia CARRIZALES PROGRESS NOTES DATE 09/18/2016 DISCUSSION Mr. Arias is a 46-year-old, white male who was seen today and chart was reviewed and case was discussed with the staff. He has been anxious, withdrawn and rather seclusive to himself. Meanwhile, he has been cooperative with the treatment recommendations. He has been taking the medication and tolerating them fairly well with no reported side effects. MENTAL STATUS EXAM Middle-aged white male who was casually dressed with fair personal hygiene, appears to be in no acute distress or discomfort. He was awake and alert on interaction with intact orientation. His mood was anxious with congruent affect. He denies any suicidal or homicidal ideation. His insight and judgement remains slightly impaired. TREATMENT PLAN 1. We will continue him on his current treatment protocol. We will monitor his response to the medication and make further adjustments as needed. 2. We will continue to follow up. Dictated by... Marlen Zimmerman/tonya TD: 09/19/2016 03:51 JOB #: [id number] Unit #: [id number] #: [id number] Patient: HARISH ARIAS PROGRESS NOTES Page 1 of 1 X Austin Garcia MD X PROGRESS NOTE
[2016-09-15 09:47] LABS: BASOPHIL% 0.4 % (0-2.5); EOSINOPHIL# 0.2 X10e3 (0-0.7); EOSINOPHIL% 3.3 % (0.0-7.0); HEMATOCRIT 40.4 % (38.0-50.0); HEMOGLOBIN 13.6 gm/dL (13.0-16.0); LYMPHOCYTE# 1.7 X10e3 (1.0-3.5); LYMPHOCYTE% 33.7 % (17.0-45.0); MEAN CELL VOLUME 90.8 FL (83-96); MEAN CORPUSCULAR HEMOGLOBIN 30.5 PG (28-34); MEAN CORPUSCULAR HGB CONC 33.6 g/dL (30-36); MEAN PLATELET VOLUME 6.9 FL (6.5-11.5); MONOCYTE# 0.4 X10e3 (0-1.0); MONOCYTE% 7.1 % (3.0-12.0); NEUTROPHIL# 2.9 X10e3 (1.5-7.1); NEUTROPHIL% 55.5 % (40-75); PLATELET COUNT 202 X10e3 (140-420); RED BLOOD COUNT 4.45 X10e (3.90-5.60); RED CELL DISTRIBUTION WIDTH 15.5 % (11.0-15.5); WHITE BLOOD COUNT 5.1 X10e3 (4.0-10.5)
[2016-09-15 09:53] LABS: DIFF IND NO
[2016-09-15 09:57] LABS: ALBUMIN SERUM 3.5 g/dL (3.5-5.0); BILIRUBIN,TOTAL 1.4 mg/dL (0.2-2.0); CALCIUM SERUM 8.9 mg/dL (8.4-10.2); CREATININE SERUM 0.5 mg/dL (0.6-1.4); GLOM FILT RATE Estimated 131.9 mL/min (>60); POTASSIUM 3.8 mmol/L (3.5-5.1); PROTEIN TOTAL SERUM 5.5 g/dL (6.0-8.3)
[2016-09-15 09:59] LABS: URINE APPEARANCE CLEAR; URINE BILIRUBIN NEG (NEG); URINE BLOOD NEG (NEG); URINE COLOR YELLOW; URINE GLUCOSE NEG (NEG); URINE KETONE NEG (NEG); URINE LEUKOCYTE ESTERASE NEG (NEG); URINE NITRATE NEG (NEG); URINE PROTEIN NEG (NEG); URINE SPECIFIC GRAVITY 1.005 (1.003-1.035)
[2016-09-15 10:15] LABS: AMPHETAMINE NEG (NEG); BARBITURATES NEG (NEG); BENZODIAZEPINES NEG (NEG); COCAINE NEG (NEG); MARIJUANA NEG (NEG); OPIATES NEG (NEG); TRICYCLIC ANTIDEPRESSANTS NEG (NEG); U METHADONE NEG (NEG)
== END 2016-09-21 09:10 | DRG 897 ==
LOC: P2S 13:27 → P1E 09-18 12:59
PROVIDERS: Psychiatry & Neurology Psychiatry
PROC: HZ2ZZZZ Detoxification Services for Substance Abuse Treatment (ICD-10-PCS; principal; 2016-09-13)
DX: F10.24 Alcohol dependence with alcohol-induced mood disorder (principal); F10.230 Alcohol dependence with withdrawal, uncomplicated; Z91.5 Personal history of self-harm; F17.210 Nicotine dependence, cigarettes, uncomplicated; J44.9 Chronic obstructive pulmonary disease, unspecified
CPT/HCPCS: 80053; 80307; 81003; 85025; 86592

== ENCOUNTER 2016-11-21 20:00 | Inpatient (IN) | payer OTHER ==
[~2016-11-21] VITALS: Ht 167.6 cm; Wt 71.2 kg
--- NOTE | ~2016-11-21 | PN ---
Unit #: [id number] #: [id number] Patient: HARISH ARIAS [id number] [facility] [address] [place] [address] [id number] I MR#: [id number] NAME: HARISH ARIAS ROOM: [facility] Age: 46 Sex: M Admission Date: 11/21/2016 : 1970 Attending Physician: Austin Garcia M.D. Admitting Physician: Austin Garcia M.D. Primary Care Physician: Primary Care Physician Ofelia CONTRERAS NOTES DATE 11/25/2016 DISCUSSION Mr. Arias is a 46-year-old white male who was seen today and chart was reviewed and case was discussed with the staff. He has been anxious, withdrawn, rather seclusive to himself though has been calm and cooperative, particularly since he found out that he has been accepted at [facility] and they will be able to come pick him up tomorrow. He has been taking medications and tolerating them fairly well with no reported side effects. MENTAL STATUS EXAMINATION Middle-aged white male who was casually dressed with fair personal hygiene and appears to be in no acute distress or discomfort. He was awake and alert on interaction with intact orientation. His mood was anxious with congruent affect. He denies any suicidal or homicidal ideation and also denies any auditory or visual hallucinations. His insight and judgement remains slightly impaired. TREATMENT PLAN 1. Will continue him on his current treatment protocol. Will monitor his response to the medications and make further adjustments as needed. 2. Will continue to follow up. Dictated by... Marlen Zimmerman/luann TD: 11/25/2016 21:57 JOB #: [id number] Unit #: [id number] #: [id number] Patient: HARISH ARIAS PROGRESS NOTES Page 1 of 1 X Austin Garcia MD PROGRESS NOTE
--- NOTE | ~2016-11-21 | PN ---
Unit #: [id number] #: [id number] Patient: HARISH ARIAS [id number] [facility] [address] [place] [address] [id number] I MR#: [id number] NAME: HARISH ARIAS ROOM: [facility] Age: 46 Sex: M Admission Date: 11/21/2016 : 1970 Attending Physician: Austin Garcia M.D. Admitting Physician: Austin Garcia M.D. Primary Care Physician: Primary Care Physician Ofelia CARRIZALES PROGRESS NOTES DATE 11/24/2016 DISCUSSION Mr. Arias is a 46-year-old white male who was seen today and chart was reviewed and case was discussed with the staff. He has been anxious, withdrawn, depressed and rather seclusive to himself. Meanwhile, he has been cooperative with treatment recommendations and has been taking medications and tolerating them fairly well with no reported side effects. MENTAL STATUS EXAMINATION Middle-aged white male who was casually dressed with fair personal hygiene and appears to be in no acute distress or discomfort. He was awake and alert on interaction with intact orientation. His mood was anxious with congruent affect. His speech is slow and goal-directed. He denies any suicidal or homicidal ideation and also denies any auditory or visual hallucinations. His insight and judgement remains slightly impaired. PLAN 1. Will continue on his current medications and treatment protocol. Will monitor his response to the medications and make further adjustments as needed. 2. Will continue to follow up. Dictated by... Marlen Zimmerman/luann TD: 11/24/2016 23:21 JOB #: [id number] Unit #: [id number] #: [id number] Patient: HARISH ARIAS PROGRESS NOTES Page 1 of 1 X Austin Garcia MD PROGRESS NOTE
--- NOTE | ~2016-11-21 | PA ---
Unit #: [id number] #: [id number] Patient: HRAISH ARIAS [id number] [facility] [address] [id number] I MR#: [id number] NAME: HARISH ARIAS ROOM: P177 Age: 46 Sex: M Admission Date: 11/21/2016 : 1970 Date of Assessment: Attending Physician: Austin Garcia M.D. Admitting Physician: Austin Garcia M.D. Primary Care Physician: Primary Care Physician No PSYCHIATRIC ASSESSMENT DATE OF SERVICE 11/22/2016. IDENTIFYING DATA Mr. Arias is a 46-year-old white male, who is a resident of [place], [place], and is known to me from previous encounter and was transferred to us from [facility] on a voluntary basis. CHIEF COMPLAINT "I'm an alcoholic, I'm in withdrawal." HISTORY OF PRESENT ILLNESS Mr. Arias is a 46-year-old white male, who came to the hospital reporting that he is an alcoholic and that he had a seizure earlier in the day and he was admitted to the hospital and admitted to drinking regularly and heavily and stated that he has been depressed for quite some time because he is 46 years with alcoholic, cannot stop drinking and he is homeless and reports that he is currently having suicidal ideation, but does not have a plan, but also made comments "what's the point." He stated that he tries to get sober and get a job, but he always end up drinking and then everything falls thorough and reports that he would be better off than like this and reports that if he left the hospital and was triggered, he could possibly hurt himself and reports that he drinks daily and if he has money, he will still drink half a gallon of vodka on a daily basis. He was seen to be in active withdrawals and also reporting increasing depression, feelings of hopelessness and suicidal ideation and as such, a recommendation for inpatient level of care for safety and stabilization was made. SUBSTANCE ABUSE HISTORY The patient reports history of alcohol and cannabis abuse and alcohol has been his drug of choice as he reports that he has been drinking half a gallon of vodka on a daily basis. PAST PSYCHIATRIC HISTORY The patient has had a history of multiple inpatient psychiatric hospitalizations at [facility] in addition to being at [facility], and review of the medical records indicate currently he is not active in any treatment program, is not seeing a psychiatrist, and is not taking any psychotropic medications. PAST MEDICAL HISTORY No acute or chronic medical illnesses. Unit #: [id number] #: [id number] Patient: HARISH ARIAS ALLERGIES No known medication allergies. CURRENT MEDICATIONS None. PERSONAL AND SOCIAL HISTORY A 46-year-old white male, who reports that he is single, unemployed, and homeless and has poor social support system. MENTAL STATUS EXAMINATION Middle-aged white male, who was casually dressed with fair personal hygiene, appears to be in no acute distress or discomfort. He was awake and alert on interaction with intact orientation to time, place, and person. His mood was anxious and depressed with a congruent affect. His speech was slow and restricted in content. His thought processes were disorganized with some looseness of associations and suicidal ideations. His insight and judgment remain significantly impaired. DIAGNOSTIC IMPRESSION Psychiatric: Major depressive disorder, recurrent, moderate, without psychotic features and alcohol dependence, moderate, in acute withdrawals. Medical: None. Stressors: Moderate psychosocial stressors. TREATMENT PLAN 1. The patient has presented with a history of mood disorder and substance abuse and has been decompensating and will need inpatient hospitalization for detoxification, safety, and stabilization. We will start him on detox protocol. We will closely monitor for any worsening withdrawal symptoms. 2. Supportive therapy was provided to the patient. 3. Safe, structured, and nourishing environment will be provided. ESTIMATED LENGTH OF STAY 5 to 7 days. ABILITY TO HELP SELF Limited. WILLINGNESS TO HELP SELF The patient appears to be willing to help self. STRENGTHS 1. Communicative. 2. Cooperative. PROBLEMS 1. Chronic dysphoric symptoms. 2. Chronic chemical dependency. 3. Poor social support system. DISCHARGE CRITERIA This will be contingent upon the patient's ability to show resolution of his depression and anxiety and his ability to stay safe and sober, particularly after discharge from the hospital. Unit #: [id number] #: [id number] Patient: HARISH ARIAS Dictated by..Marlen Rondon/iftikhar TD: 11/22/2016 20:01 JOB #: [id number] PSYCHIATRIC ASSESSMENT Page 1 of 1 X Austin Garcia MD PSYCHIATRIC ASSESSMENT
--- NOTE | ~2016-11-21 | HP ---
Unit #: [id number] #: [id number] Patient: HARISH WHITLEY [id number] [place] [address] [id number] MR#: [id number] NAME: HARISH WHITLEY ROOM: [facility] Age: 46 Sex: M Admission Date: 11/21/2016 : 1970 Attending Physician: Austin Garcia M.D. Admitting Physician: Austin Garcia M.D. Primary Care Physician: Primary Care Physician No HISTORY AND PHYSICAL HISTORY OF PRESENT ILLNESS Harish is a 46 year old admitted to [facility] because of his continued abuse of alcohol. He is detoxing. PAST MEDICAL HISTORY 1. Long history of alcohol abuse. 2. History of withdrawal seizures. 3. COPD. PAST SURGICAL HISTORY Nothing reported. ALLERGIES No known drug allergies. SOCIAL HISTORY Smokes one-half pack per day. Drinks a fifth of liquor on a daily basis. Denies illicit drug use. FAMILY HISTORY Medically noncontributory. REVIEW OF SYSTEMS CONSTITUTIONAL: No fever or chills. HEENT: Denies any sore throat, ear pain or runny nose. CARDIOVASCULAR: Denies chest pain, irregular heart rhythm or palpitations. CHEST: Denies shortness of breath or cough. No hemoptysis. GASTROINTESTINAL: Denies nausea, vomiting, diarrhea or chronic constipation. ENDOCRINE: Denies history of increased thirst or urination. No recent significant weight loss or gain. GENITOURINARY: Denies dysuria, frequency, or hematuria. SKIN: Denies any rashes. HEMATOLOGIC: Denies history of increased bleeding or bruising. MUSCULOSKELETAL: Denies any hot, swollen joints. No generalized muscle pain. NEUROLOGIC: Denies problems with vision or speech. No frequent, severe headaches. No numbness, tingling or weakness in any extremities. Denies loss of bladder or bowel control. CURRENT MEDICATIONS 1. Detox protocol Unit #: [id number] #: [id number] Patient: HARISH WHITLEY 2. Nicotine patch 14 mg q day PHYSICAL EXAMINATION GENERAL: Alert, well-nourished, in no apparent distress. VITAL SIGNS: Blood pressure 110/72, heart rate 80, respirations 16, temperature 98.6. WEIGHT: 157. HEIGHT: 5 foot 6 inches. SKIN: Warm and dry without rash or lesion. HEENT: Normocephalic. TMs not viewed. Oral and nasal passages clear. Conjunctivae clear. Pupils equal, round and reactive to light and accommodation. Extraocular movements intact. NECK: Supple without lymphadenopathy or thyromegaly. HEART: Regular rate and rhythm without murmur. LUNGS: Clear. ABDOMEN: Soft, nontender. : Not done. EXTREMITIES: No evidence of cyanosis, clubbing or edema. Moves all extremities without focal deficit. NEUROLOGICAL: Grossly within normal limits. Cranial Nerves: II: Visual roman are intact. III, IV AND : Extraocular movements are intact. Pupils are equal, round and reactive to light. V: Facial sensation is grossly normal. VII: Facial movements and expression are normal. VIII: Auditory acuity grossly intact. IX, X: Uvula is midline. Phonation is normal. XI: Patient shrugs shoulders and turns head normally. XII: Tongue protrudes in the midline. Sensory and Motor Function: Sensory and motor sensation is grossly normal. Motor: moves all extremities well. Coordination: Gait is normal. Deep Tendon Reflexes: Intact. IMPRESSION Psychiatric admission. RECOMMENDATIONS PSYCHIATRIC: Per psychiatrist. MEDICAL: I see no contraindications to participating in facility's activities. MEDICAL PROGNOSIS Good. MEDICAL CONDITION Stable. Dictated by... Leatha Smith PLoboALobo-Opal. for Marlen Ziegler/tonya TD: 11/23/2016 00:26 JOB #: [id number] Unit #: [id number] #: [id number] Patient: HARISH WHITLEY HISTORY AND PHYSICAL Page 1 of 1 X Leatha Smith HISTORY AND PHYSICAL
--- NOTE | ~2016-11-21 | PN ---
Unit #: [id number] #: [id number] Patient: HARISH ARIAS [id number] [facility] [address] [place] [address] [id number] MR#: [id number] NAME: HARISH ARIAS ROOM: [facility] Age: 46 Sex: M Admission Date: 11/21/2016 : 1970 Attending Physician: Austin Garcia M.D. Admitting Physician: Austin Garcia M.D. Primary Care Physician: Primary Care Physician Ofelia CONTRERAS NOTES DATE November 23, 2016 DISCUSSION Mr. Arias is a 46-year-old white male, with substance abuse, and mood disorder, who was seen today and chart was reviewed and the case was discussed with the staff. He remains anxious, withdrawn, depressed, and rather seclusive to himself. Meanwhile, he has been cooperative with the treatment recommendations and he has been taking the medications and tolerating them fairly well with no reported side effects. MENTAL STATUS EXAMINATION Middle-aged white male, who was casually dressed with fair personal hygiene and appears to be in no acute distress or discomfort. He was awake and alert on interaction with intact orientation. His mood is anxious and depressed with a congruent affect. His speech is slow and restricted in content. He reports having suicidal ideations, but any homicidal ideations. His insight and judgment remain slightly impaired. TREATMENT PLAN 1. We will continue him on his current medications and treatment protocol, and will monitor his response to the medications, and make further adjustments as needed. 2. We will continue to followup. Dictated by... Marlen Zimmerman/vinicius TD: 11/24/2016 07:02 JOB #: [id number] Unit #: [id number] #: [id number] Patient: HARISH ARIAS PROGRESS NOTES Page 1 of 1 X Austin Garcia MD PROGRESS NOTE
--- NOTE | ~2016-11-21 | DS ---
Unit #: [id number] #: [id number] [facility] [id number] [facility] [address] [place] [address] [id number] I MR#: [id number] NAME: HARISH ARIAS ROOM: [facility] Age: 46 Sex: M Admission Date: 11/21/2016 : 1970 Discharge Date: 11/26/2016 Attending Physician: Austin Garcia M.D. Primary Care Physician: Primary Care Physician No DISCHARGE SUMMARY IDENTIFYING DATA Mr. Arias is a 46-year-old white male, who is a resident of [place], [place], and is known to me from previous encounter, was transferred to us from [facility] on a voluntary basis. DISCHARGE DIAGNOSES Psychiatric: Major depressive disorder, recurrent, moderate, without psychotic features; alcohol dependence, moderate and acute withdrawals. Medical: None. Stressors: Mild psychosocial stressors. HISTORY OF PRESENT ILLNESS Please see initial psychiatric evaluation for details. PAST PSYCHIATRIC HISTORY Please see initial psychiatric evaluation for details. PAST MEDICAL HISTORY Please see initial psychiatric evaluation for details. HOSPITAL COURSE The [facility] and was oriented to the hospital environment. Routine p.r.n. medications were initiated, and he was started on the alcohol detox protocol and was closely monitored. He reported having poor social support system outside of the hospital and wanted to go to some treatment facilities and drug abuse social worker were able to get him accepted at [facility], and once he finished the detox, it was decided he will be discharged to the facility. We will continue treatment on an outpatient basis. DISCHARGE MEDICATIONS None. DISCHARGE CONDITION Stable. PROGNOSIS Fair. Dictated by... Austin Garcia M.D. Unit #: [id number] #: [id number] Patient: HARISH ARIAS IAA/modl TD: 11/26/2016 08:58 JOB #: [id number] DISCHARGE SUMMARY Page 1 of 1 X Austin Garcia MD X DISCHARGE SUMMARY
[2016-11-22 12:38] LABS: BASOPHIL% 0.4 % (0-2.5); EOSINOPHIL# 0.1 X10e3 (0-0.7); EOSINOPHIL% 1.5 % (0.0-7.0); HEMATOCRIT 37.3 % (38.0-50.0); HEMOGLOBIN 12.9 gm/dL (13.0-16.0); LYMPHOCYTE# 2.8 X10e3 (1.0-3.5); LYMPHOCYTE% 44.3 % (17.0-45.0); MEAN CELL VOLUME 90.7 FL (83-96); MEAN CORPUSCULAR HEMOGLOBIN 31.3 PG (28-34); MEAN CORPUSCULAR HGB CONC 34.5 g/dL (30-36); MEAN PLATELET VOLUME 6.9 FL (6.5-11.5); MONOCYTE# 0.6 X10e3 (0-1.0); MONOCYTE% 9.5 % (3.0-12.0); NEUTROPHIL# 2.8 X10e3 (1.5-7.1); NEUTROPHIL% 44.3 % (40-75); PLATELET COUNT 291 X10e3 (140-420); RED BLOOD COUNT 4.11 X10e (3.90-5.60); RED CELL DISTRIBUTION WIDTH 14.1 % (11.0-15.5); WHITE BLOOD COUNT 6.3 X10e3 (4.0-10.5)
[2016-11-22 12:39] LABS: DIFF IND NO
[2016-11-22 12:49] LABS: ALBUMIN SERUM 3.8 g/dL (3.5-5.0); BILIRUBIN,TOTAL 0.7 mg/dL (0.2-2.0); BUN/CREATININE RATIO 11.25; CALCIUM SERUM 9.1 mg/dL (8.4-10.2); CREATININE SERUM 0.8 mg/dL (0.6-1.4); GLOM FILT RATE Estimated 108.7 mL/min (>60); POTASSIUM 4.3 mmol/L (3.5-5.1)
[2016-11-24 09:42] LABS: URINE APPEARANCE CLEAR; URINE BILIRUBIN NEG (NEG); URINE BLOOD NEG (NEG); URINE COLOR DK YELLOW; URINE GLUCOSE NEG (NEG); URINE KETONE NEG (NEG); URINE LEUKOCYTE ESTERASE NEG (NEG); URINE NITRATE NEG (NEG); URINE PH 7.5 (5-8); URINE PROTEIN NEG (NEG); URINE SPECIFIC GRAVITY 1.011 (1.003-1.035)
[2016-11-24 10:17] LABS: AMPHETAMINE NEG (NEG); BARBITURATES NEG (NEG); BENZODIAZEPINES POS (NEG); COCAINE NEG (NEG); MARIJUANA NEG (NEG); OPIATES NEG (NEG); TRICYCLIC ANTIDEPRESSANTS NEG (NEG); U METHADONE NEG (NEG)
== END 2016-11-26 10:40 | DRG 885 ==
LOC: P1S 23:14 → P1E 23:14
PROVIDERS: Psychiatry & Neurology Psychiatry
PROC: HZ2ZZZZ Detoxification Services for Substance Abuse Treatment (ICD-10-PCS; principal; 2016-11-21)
DX: F33.1 Major depressive disorder, recurrent, moderate (principal); R45.851 Suicidal ideations; F10.230 Alcohol dependence with withdrawal, uncomplicated; Z59.0 Homelessness; J44.9 Chronic obstructive pulmonary disease, unspecified; F17.210 Nicotine dependence, cigarettes, uncomplicated
CPT/HCPCS: 80053; 80307; 81003; 85025; 86592